=== PATIENT | female | born 1995 | race Caucasian/White ===

== ENCOUNTER 2021-01-26 00:15 | Emergency (ER) | payer OTHER ==
[~2021-01-26] VITALS: Ht 160 cm; Wt 59.0 kg
--- NOTE | 2021-01-26 00:25 | NUR ---
Placed in room 5. Placed on blood pressure machine and pulse oximeter. Report given to SELF.
[2021-01-26 00:32] VITALS: BP_SYST 129
--- NOTE | 2021-01-26 00:32 | NUR ---
PT ARRIVED TO ER FOR COMPLAINTS OF BILATERAL LOWER LEG ITCHINESS AND SWELLING. PT WENT CAMPING ON TUESDAY AND WHILE ON A WALK FELT HER LOWER LEGS GET BITTEN AND SCRATCHED. PT THINKS AN INSECT BIT HER. PT IS COMPLAINING OF 6/10 PAIN AND ITCHINESS TO THE LOWER LEGS. A&OX4, NO OTHER COMPLAINTS
--- NOTE | 2021-01-26 00:42 | NUR ---
ER at bedside examining patient.
[2021-01-26] MEDS ORDERED: IBUP-1969 PO (00:52)
[2021-01-26] MEDS ORDERED: PRED20TA PO (00:52)
--- NOTE | 2021-01-26 00:55 | NUR ---
Patient given written and verbal discharge instructions and verbalizes understanding. ER MD discussed with patient the results and treatment provided. Patient in stable condition. ID arm band removed. Rx of IBUPROFEN AND PRDNISONE given. Patient educated on pain management and to follow up with PMD. Pain Scale 3/10. Opportunity for questions provided and answered. Medication side effect fact sheet provided.
[2021-01-26 00:57] VITALS: BP_SYST 129
== END 2021-01-26 00:55 | disposition home or self-care (01) ==
LOC: SED 00:15
DX: R21 Rash and other nonspecific skin eruption (principal)
CPT/HCPCS: 99283

== ENCOUNTER 2022-01-04 14:35 | Emergency (ER) | payer BC, MEDICAID ==
[~2022-01-04] VITALS: Ht 160 cm; Wt 61.7 kg
[~2022-01-04 14:35] MED LIST: IBUP-1969 PO; PRED20TA PO
--- NOTE | 2022-01-04 14:40 | NUR ---
Pt brought by self, A&Ox4, pt presents to ER with c/o chest pain x 2 days, pt anxious, skin pink and warm, cap refill <3, VSS, will cont to monitor.
[2022-01-04 14:50] VITALS: BP_SYST 123
--- NOTE | 2022-01-04 15:30 | NUR ---
Dr Johnson evaluating patient at bedside
[2022-01-04 16:48] LABS: BASOPHILS # (AUTO) 0.1 K/uL (0.0-0.2); BASOPHILS % (AUTO) 0.7 % (0.0-2.0); EOSINOPHILS % (AUTO) 0.5 % (0.0-4.0); HEMATOCRIT 43.6 % (36-48); HEMOGLOBIN 14.8 g/dL (12.0-16.0); LYMPHOCYTES # (AUTO) 1.8 K/uL (1.0-5.5); LYMPHOCYTES % (AUTO) 21.1 % (20.5-51.5); MEAN CORPUSCULAR HEMOGLOBIN 30 pg (27-31); MEAN CORPUSCULAR HGB CONC 34 % (32-36); MEAN CORPUSCULAR VOLUME 88 fL (79.0-98.0); MONOCYTES # (AUTO) 0.6 K/uL (0.0-1.0); MONOCYTES % (AUTO) 7.1 % (1.7-9.3); NEUTROPHILS # (AUTO) 5.9 K/uL (1.8-7.7); NEUTROPHILS % (AUTO) 70.6 % (40.0-70.0); PLATELET COUNT (AUTO) 367 K/uL (130-430); RED BLOOD CELL COUNT(AUTO) 4.95 MIL/uL (4.2-6.2); RED CELL DISTRIBUTION WIDTH 13.5 % (9.0-15.0); WHITE BLOOD COUNT (AUTO) 8.4 K/uL (4.8-10.8)
[2022-01-04 17:14] LABS: ANION GAP 10 (5-15); CALCIUM 9.7 mg/dL (8.4-11.0); CHLORIDE 104 mmol/L (98-107); CREATININE 0.83 mg/dL (0.55-1.30); GLUCOSE 98 mg/dL (70-99); SODIUM SERUM 138 mmol/L (136-145); UREA NITROGEN, BLOOD 11 mg/dL (8-21)
[2022-01-04 17:16] LABS: GFR AFRICAN AMERICAN 108 mL/min (>90)
[2022-01-04 17:30] LABS: ALANINE AMINOTRANSFERASE 16 U/L (12-78); ALBUMIN 4.5 g/dL (3.4-4.8); ASPARTATE AMINOTRANSFERASE 17 U/L (10-37); TOTAL BILIRUBIN 0.3 mg/dL (0.0-1.0)
[2022-01-04 18:18] VITALS: BP_SYST 123
--- NOTE | 2022-01-04 18:21 | NUR ---
Patient given written and verbal discharge instructions and verbalizes understanding. ER MD discussed with patient the results and treatment provided. Patient in stable condition. ID arm band removed. No Rx given. Patient educated on pain management and to follow up with PMD. Pain Scale 3/10 . Opportunity for questions provided and answered. Medication side effect fact sheet provided.
== END 2022-01-04 18:18 | disposition home or self-care (01) ==
LOC: SED 14:35
DX: R07.89 Other chest pain (principal); Z79.899 Other long term (current) drug therapy
CPT/HCPCS: 36415; 71045; 80053; 84484; 84703; 85025; 93005; 99285